=== PATIENT | female | born 1960 | race Caucasian/White ===

== ENCOUNTER 2024-12-20 08:21 | Day surgery (SDC) | payer MEDICARE, OTHER, SELFPAY ==
[2024-12-06 08:17] VITALS: BMI 34.0
[2024-12-20] VITALS (18 sets, daily range): BP systolic 123–153; BP diastolic 72–90; PULSE 77–131; RESP 10–18; TEMP 36.1–37.1; O2SAT 93–99; BMI 33.5
--- NOTE | 2024-12-20 | DI.RAD.S_ITS ---
PROCEDURE: XR HIP W PEL IF DONE RT 2V INDICATIONS: INTRA OP RT HIP TECHNIQUE: AP pelvis with lateral view(s) of the right hip(s). COMPARISON: None. FINDINGS: Bones: There are no osseous abnormalities. SI and hip joints: Right total hip prostheses, with exception of the femoral head , shows anatomic alignment. Mild left hip degeneration noted. Soft tissues: No soft tissue swelling, calcification or mass. IMPRESSION: Incomplete right hip prostheses is anatomically aligned Dictated by: Alli Reyna M.D. on 12/21/2024 at 7:43 Approved by: Alli Reyna M.D. on 12/21/2024 at 7:44
--- NOTE | 2024-12-20 06:00 | DI.RAD.S_ITS ---
PROCEDURE: XR HIP W PEL IF DONE RT 2V INDICATIONS: CASSIE TECHNIQUE: AP pelvis and lateral view of the hip acquired. COMPARISON: [facility], CR, XR HIP W PEL IF DONE RT 2V, 12/20/2024, 12:13. FINDINGS: Bones: Patient is status post total right hip arthroplasty, with hardware components in expected positions. The hip joint appears congruent. The visualized bony structures appear intact. Soft tissues: Overlying postoperative changes are noted. No suspicious soft tissue densities. IMPRESSION: Expected immediate postoperative appearance, status post total right hip arthroplasty. Dictated by: Vasu Hurtado M.D. on 12/20/2024 at 20:36 Approved by: Vasu Hurtado M.D. on 12/20/2024 at 20:37
[2024-12-20] MEDS: VANCOMYCIN 1,000 MG in SODIUM CHLORIDE 0.9% 250 ML 250 MG IV (09:54)
[2024-12-20] MEDS: ACETAMINOPHEN 325 MG TABLET 975 MG PO (09:54)
[2024-12-20] MEDS: CELECOXIB 200 MG CAPSULE PO (09:54)
[2024-12-20] MEDS: LACTATED RINGERS 1,000 ML 42 ML IV (09:55)
[2024-12-20] MEDS: SCOPOLAMINE 1 PATCH TOP (10:07)
--- NOTE | 2024-12-20 10:24 | P.OP_ITS ---
Operative Date/Time/Diagnoses Date of procedure: 12/20/24 Time of procedure: 11:00 Pre-op diagnosis: Right hip osteoarthritis Post-op diagnosis: same Procedure & Clinicians Procedure: Right total hip arthroplasty anterior approach Same procedure as scheduled: Yes Indications: The patient has had progressively worsening right hip pain with radiographic changes consistent with arthritis. Non-operative management has failed and the patient has requested total hip replacement. The risks, benefits and alternatives to surgery were discussed with the patient prior to proceeding. Risks discussed included, but were not limited to, failure to relieve pain, leg length discrepancy, dislocation, stiffness, infection, nerve damage, deep venous thrombosis, pulmonary embolism, stroke, coma, heart attack, permanent paralysis and , as well as the potential need for eventual revision of the prosthetic. Surgeon: Colleen Ellis Arcade Technician: Radha Rios Anesthesia Type: General and Spinal Operative Notes Findings: Severe right hip OA, adequate stability, adequate bone Closure Type: primary Specimen(s): none sent Prosthetic devices, grafts, tissues, transplants, or devices: Ellis and nephew R3 48, neutral poly liner, two 6.5 mm screw, polar stem size 2 standard offset, 32 x -3 Oxinium femoral head Estimated Blood Loss (mL): 250 Blood products transfused: none Procedure in detail: The patient was brought to the operating room. Patient was carefully positioned in the supine position. Time-out was performed and antibiotics were given. Anesthesia was induced. She was positioned in the on the table in order to allow hyperextension of the hip. The right lower extremity was prepped and draped in a standard sterile fashion. An anterior right hip incision was made 1 fingerbreadth lateral to the anterior superior iliac spine and extended distally towards the greater trochanter. Dissection was carried out through skin and subcutaneous tissues. Superficial hemostasis was achieved. The fascia over the tensor fascia luana was defined and incised with a knife. Two Allis clamps were used to grasp the fascia. Tensor fascia luana was retracted laterally. A gelpi retractor was placed. Dissection was carried out down along the neck. The circumflex vessels were carefully identified and cauterized with the Aqua Mantis. A PA was used during the procedure and was essential for intraoperative retraction and safe implantation of the components. There was good visualization of the femoral neck. A Cobra was placed superior to the neck and the gluteus fibers were carefully stripped from that superior aspect of the capsule. A 2nd retractor was placed along the inferior aspect of the neck. The rectus insertion along the capsule was partially released. A 3rd retractor that was then gently placed over the rim of the acetabulum under the rectus. Capsule was carefully incised and released from the intertrochanteric line circumferentially superior to the mid sagittal line and inferiorly to the mid sagittal line until the lesser trochanter was palpable. A tag stitch was placed both in the superior and inferior limb of the capsular insertion. Along the acetabulum capsule was also released up to the mid sagittal 12:00 position. A portion of the labrum was resected. A saw was used to perform an osteotomy at the level of the intertrochanteric line and the junction of the superior femoral neck leaving approximately 1 finger breath of residual inferior neck above the lesser trochanter. A 2nd cut was made along the femoral neck at the base of the head and a napkin ring of neck was removed. Corkscrew was placed in the femoral head and the head was removed without difficulty. Retractors were then repositioned around the acetabulum. Residual labrum was resected and additional osteophytes were removed. A reamer that was 4 mm below the templated size was placed by hand in the acetabulum and it was reamed to centralize the acetabulum. It was then reamed up to 2 under the templated size and fluoroscopy was brought in to confirm the position of the reaming and depth of reaming. I reamed 1 under the anticipated size. A trial cup was placed and noted that it was appropriately sized and fluoroscopy confirmed position and depth. The component was open and inserted without difficulty fluoroscopic imaging was used to confirm that the cup had been adequately seated and was well positioned. It was further stabilized with two screws. Neutral poly liner was placed. The cup was tested and noted to be stable. Attention was then directed to the femur. The femur was gently hyperextended additional capsular release was performed as needed in order to allow adequate visualization of the proximal femur with elevation of the femur. Patient was placed in a hyperextended slightly adducted position with maximum external rotation. Box osteotome was used to check for any residual neck as well as sclerotic bone along the trochanter. [place] pepper was placed in the femur. Additional broaching was performed. Canal finder was used to determine the alignment of the canal and position. Size 1 broach was placed. The canal was then appropriately broached up to the templated size as long as there was adequate stability of the broach and serial advancement of the broach without excessive impingement. Specific attention was directed at avoiding varus attempting to direct the distal aspect of the broach more anteriorly and avoiding excessive anteversion. Trial reduction showed acceptable range of motion, good stability, no posterior impingement, jehovah's witness of leg length and appropriate lateral shuck. I also hyperflexed the hip and checked that there was no impingement anteriorly and there was good stability with flexion, adduction and internal rotation. Marcaine and Exparel were injected. The stem was placed without difficulty. Repeat trial reduction and x-ray showed acceptable overall position, length, and no evidence of the femoral fracture. Final head was placed. Wound was meticulously irrigated with normal saline. The hip was reduced and additional Exparel and Marcaine were injected. The capsule was closed with interrupted nonabsorbable sutures. The fascia of the tensor was closed with interrupted and running Vicryl. No drain was placed. Any tensor fascia luana muscle that appeared to be contused or injured which was a minimal amount was carefully resected. Capsule around the tensor was injected with Exparel and Marcaine. The skin was closed with barbed stitches for the subcutaneous tissue and skin. We also used surgical glue. The wound was dressed sterilely. Brief Betadine soak was also used and was meticulously irrigated with normal saline. Patient was transferred to recovery room in satisfactory condition. Complications: none Post-operative Condition: stable Disposition: Acute Care Plan for aftercare: The patient will be maintained on a standard total hip replacement protocol with weight bearing as tolerated and anterior hip precautions. The patient will receive Aspirin and sequential compression devices for DVT prophylaxis. The patient will be discharged home when safe for the home environment.
[2024-12-20] MEDS: CEFAZOLIN 2 GM/100 ML PREMIX 100 ML IV ×2 (11:30→18:48)
[2024-12-20] MEDS: TRANEXAMIC ACID 1,000 MG VIAL 1000 MG INJ ×2 (11:37→13:07)
--- NOTE | 2024-12-20 11:42 | SUR.OPER ---
Supine on padded Pinson table with bilateral legs secured in padded positioning boots and suspended in positioning spars, operative leg in traction per surgeon. Head on one pillow. Arm on non-operative side secured on padded armboard <90 degrees abduction. Arm on operative side padded and resting across chest then secured with tape over sheet. Padded perineal post in place per surgeon.
[2024-12-20] MEDS: BUPIVACAINE LIPOSOME 266 MG/20 ML VIAL INJ (11:50)
[2024-12-20] MEDS: BUPIVACAINE 0.25% W/ EPI 30 ML VIAL 60 ML INJ (11:54)
--- NOTE | 2024-12-20 13:59 | PM.PREOP ---
Pre-operative Note Interval Note History & Physical reviewed/Exam performed by Physician: Yes Changes to H&P: No
[2024-12-20] MEDS: hydrOXYzine 50 MG/ML INJ 25 MG IM (14:15)
[2024-12-20] MEDS: HYDROMORPHONE 1 MG INJ IV (14:16)
[2024-12-20] MEDS: LACTATED RINGERS 1,000 ML 100 ML IV (15:30)
[2024-12-20] MEDS: IBUPROFEN 400 MG TABLET PO ×2 (16:20→21:50)
[2024-12-20] MEDS: ACETAMINOPHEN 325 MG TABLET 650 MG PO (16:21)
[2024-12-20] MEDS: TRAMADOL 50 MG TABLET PO ×2 (18:09→21:51)
[2024-12-20] MEDS: LORazepam 0.5 MG TABLET PO (19:50)
[2024-12-20] MEDS: ASPIRIN EC 81 MG TABLET PO (21:50)
[2024-12-20] MEDS: DOCUSATE 100 MG CAPSULE PO (21:52)
[2024-12-21] MEDS: LACTATED RINGERS 1,000 ML 100 ML IV (01:42)
[2024-12-21] MEDS: CEFAZOLIN 2 GM/100 ML PREMIX 100 ML IV (03:15)
[2024-12-21] MEDS: ONDANSETRON 4 MG/2 ML INJ IV (03:19)
[2024-12-21 04:00] VITALS: BP 139/79; PULSE 88; RESP 18; TEMP 36.3; O2SAT 98
[2024-12-21] MEDS: ACETAMINOPHEN 325 MG TABLET 650 MG PO ×2 (05:07→11:12)
[2024-12-21] MEDS: LEVOTHYROXINE 100 MCG TABLET PO (05:08)
[2024-12-21] MEDS: IBUPROFEN 400 MG TABLET PO ×2 (05:08→11:12)
[2024-12-21 05:19] LABS: Hemoglobin 11.7 g/dL (12.0-16.0)
[2024-12-21] MEDS: PANTOPRAZOLE DR 20 MG TABLET PO (07:00)
--- NOTE | 2024-12-21 07:52 | P.DS_ITS ---
History of Present Illness History of Present Illness Date Patient Seen: 12/21/24 Time Patient Seen: 07:52 Chief complaint: OPB Narrative: The patient has had progressively worsening right hip pain with radiographic changes consistent with arthritis. Non-operative management has failed and the patient has requested total hip replacement. The risks, benefits and alternatives to surgery were discussed with the patient prior to proceeding. Risks discussed included, but were not limited to, failure to relieve pain, leg length discrepancy, dislocation, stiffness, infection, nerve damage, deep venous thrombosis, pulmonary embolism, stroke, coma, heart attack, permanent paralysis and , as well as the potential need for eventual revision of the prosthetic. Discharge Providers Provider Discharge Date: 12/21/24 Primary care physician: TONY Bautista Consults: 12/20/24 06:00 Consult to Anesthesiology Routine Comment: Consulting Provider: Anesthesiologist Reason for consultation: Regional block for post operative pain control Has provider been notified: No 12/20/24 15:15 Consult to Discharge Planning Routine Comment: Consult to Occupational Therapy Evaluate & Treat Comment: Physician Instructions: Evaluate and treat Consult to Physical Therapy Evaluate & Treat Comment: Physician Instructions: post op CASSIE protocol Discharge provider: Demetri Bauer PA-C Summary Hospital Course Discharge Diagnosis: Right hip osteoarthritis Hospital Course: Procedure: Right total hip arthroplasty anterior approach Same procedure as scheduled: Yes Surgeon: Colleen Ellis Athletic Equipment Manager: Radha Rios Anesthesia Type: General and Spinal Operative Notes Findings: Severe right hip OA, adequate stability, adequate bone Closure Type: primary Specimen(s): none sent Prosthetic devices, grafts, tissues, transplants, or devices: Ellis and nephew R3 48, neutral poly liner, two 6.5 mm screw, polar stem size 2 standard offset, 32 x -3 Oxinium femoral head Estimated Blood Loss (mL): 250 Blood products transfused: none Status at Discharge Cognitive/behavioral status at discharge: oriented Functional status at discharge: uses cane/walker Time Spent with Patient Time spent: Less than 30 minutes Exam Vital Signs (past 8 hours): - 12/21/24 04:00 Temperature 97.3 F L Pulse Rate 88 Respiratory Rate 18 Blood Pressure 139/79 Pulse Oximetry 98 Oxygen Flow Rate 0 Oxygen Delivery Method Room Air Oxygen Flow Rate 0 Narrative Exam Narrative: Patient's pain is controlled with oral medication. Pain is localized to surgical site. Patient declines any new numbness or tingling at the surgical extremity. Patient denies any shortness of breath, dizziness, light-headedness, nausea, vomiting, fever or chills. 5/5 strength in hip flexors, quadriceps, hamstrings, DF, PF, EHL bilaterally. Sensation to light touch intact throughout BLE. Calves soft, compressible, nontender. Dressing placed intraoperatively CDI. Resp Effort & Inspection: normal respiratory effort and able to speak in complete sentences Objective Labs 12/21/24 04:30 Labs: Laboratory Results - last 24 hr 12/21/24 04:30 Hgb 11.7 L Hct 35.0 L [facility] Medical History (Updated 12/06/24 @ 09:26 by Eliza Parson RN) RSV (acute bronchiolitis due to respiratory syncytial virus) (2023) ADHD Panic attack Osteoarthritis Hypothyroid GERD (gastroesophageal reflux disease) IBS (irritable bowel syndrome) Fibromyalgia Surgical History (Updated 12/06/24 @ 09:16 by Eliza Parson RN) History of History of ankle surgery (~1992) H/O right wrist surgery History of total right knee replacement (2006) Social History household members: spouse Smoking Status: Never smoker alcohol intake: never Discharge Assessment & Plan Assessment and Plan Assessment: Status post Right total hip arthroplasty anterior approach Plan of Treatment: Discharge to home. Anterior Hip Pre-cautions. Ambulate and weight bear as tolerated with assistive devices. Aspirin 81 mg twice a day for 6 weeks for DVT prevention. Baseline pain relief with acetaminophen 500mg every 4 hours as needed and ibuprofen 400 mg every 4 hours as needed. Patient has been prescribed tramadol 50 mg every 4 hours as needed for breakthrough pain. Prescribed lorazepam 0.5 mg q.6 hours as needed for breakthrough spasm. Initiate physical therapy in the next 5-10 days. Keep dressing clean and dry. Keep dressing on until first office visit. If dressing becomes dirty or disrupted, replace with appropriate sized dressing. Follow up in clinic in 2 weeks for wound check. Contact clinic if there are any questions or concerns. Discharge Plan Discharge Plan Patient Disposition: Home Provider Discharge Comment: DC pending PT approval Discharge orders & Medications Discharge Orders: Discharge (Order); Ordered 12/21/24 Ordered By: Demetri Bauer Prescriptions: New aspirin 81 mg Tablet,Delayed Release (Dr/Ec) 81 mg PO BID Qty: 90 0RF lorazepam 0.5 mg Tablet 0.5 mg PO Q6HR PRN (Reason: Pain, Moderate (4-6)) Qty: 30 0RF Continued liothyronine 5 mcg Tablet 20 mcg PO DAILY levothyroxine [Synthroid] 100 mcg Tablet 100 mcg PO DAILY omeprazole 20 mg Tablet,Delayed Release (Dr/Ec) 20 mg PO DAILY Follow up/Referrals: Lyssa Nguyen FNP-C [Primary Care Provider] - Colleen Ellis MD [Physician] - 01/04/25 10:30 am (Follow up at [facility] office in [place].) Diet/Activity/Treatments Diet: Diet as Tolerated Activity: Weightbearing as tolerated. Cold/Heat Therapy: Ice to hip as needed for pain. Skin/Wound/Dressing Care Report to your healthcare provider any signs of infection, such as:: chills, fever, night sweats, unusual drainage and unusual redness Dressing: May shower. Leave dressing in place until follow up in office. No bathing or otherwise soaking incision. Call the office if the dressing becomes saturated inside. Visit Report/Discharge Packet Instructions: DI for Hip Replacement Stand Alone Forms: Patient Portal/API, Surgery Discharge Discharge Data Primary Care Provider: Lyssa Nguyen Attending Provider: Colleen Ellis
[2024-12-21] MEDS: DOCUSATE 100 MG CAPSULE PO (08:39)
[2024-12-21] MEDS: TRAMADOL 50 MG TABLET PO (08:39)
[2024-12-21] MEDS: ASPIRIN EC 81 MG TABLET PO (08:39)
--- NOTE | 2024-12-21 09:21 | PT.IIE ---
Current Diagnoses Unilateral primary osteoarthritis, right hip (12/20/24) Surgery Performed Operation Date: 12/20/24 10:45 Actual Procedures p Total Hip Arthroplasty/Anterior Approach(Right) - Colleen Ellis MD Surgical History (Last Updated 12/06/24 @ 09:16 by Eliza Parson, RN) H/O right wrist surgery History of ankle surgery (~1992) History of History of total right knee replacement (2006) Medical History (Last Updated 12/06/24 @ 09:26 by Eliza Parson RN) ADHD Fibromyalgia GERD (gastroesophageal reflux disease) Hypothyroid IBS (irritable bowel syndrome) Osteoarthritis Panic attack RSV (acute bronchiolitis due to respiratory syncytial virus) (2023) Physical Therapy Inpatient Evaluation/Re-Eval M1 PT/OT-IP Prior Functional Status Start: 12/21/24 11:21 Freq: NEEDED Status: Discharge Protocol: Document 12/21/24 10:15 [facility] (Rec: 12/21/24 11:32 [facility] Desktop) Medical Review Prior Functional Status Communication I Mobility and Gait Pt states was able to walk a mile but have pain afterwards. Activities of Daily Living and IADL's Pt states was completely independent with all ADL and IADL needs. Social History Household Members spouse Living Arrangements House Number of Floors (Floors) Two Floors Number of Stairs To Enter/Railing? 4 steps with bilateral rails to the main level pt will be staying at. Home Environment Standard Height Toilet,Walk in Shower Home Equipment Front Wheel Walker,Hand Held Shower,Beer Coil Cleaner,Grab Bars In Shower Additional Social History Comment Pt has a toilet safety frame. Pt also has a standard walker that she will use the shower per pt. M1 PT/OT-IP Prior Functional Status Start: 12/21/24 13:59 Freq: NEEDED Status: Active Protocol: Document 12/21/24 09:21 [facility] (Rec: 12/21/24 14:10 [facility] [id number]) Medical Review Prior Functional Status Medical History Reviewed Yes Communication able to make needs known Mobility and Gait pt stated that she was independent with all mobilities and ambulationw ithout AD Activities of Daily Living and IADL's per OT note: Pt states was completely independent with all ADL and IADL needs. Social History Household Members spouse Living Arrangements House Number of Floors (Floors) Two Floors Number of Stairs To Enter/Railing? 4 steps with B rails to enter the house; pt will stay on main level of the house Home Environment Standard Height Toilet,Walk in Shower Home Equipment Front Wheel Walker,Hand Held Shower,Beer Coil Cleaner,Grab Bars In Shower Additional Social History Comment Pt has a toilet safety frame. Pt also has a standard walker that she will use the shower per pt. M2 PT-IP Current Condition Start: 12/21/24 13:59 Freq: NEEDED Status: Active Protocol: Document 12/21/24 09:21 [facility] (Rec: 12/21/24 14:10 AB [id number]) Physical Therapy Current Condition Current Condition Evaluation Date 12/21/24 Treatment Diagnosis s/p R CASSIE anterior; difficulty in walking Onset Date 12/20/24 M3 PT-IP Subjective Start: 12/21/24 13:59 Freq: NEEDED Status: Active Protocol: Document 12/21/24 09:21 [facility] (Rec: 12/21/24 14:10 AB [id number]) Subjective Physical Therapy Visit Type Type Initial Evaluation Visit Start Time 09:21 Visit Stop Time 09:50 Number of CODING TEAM LEAD Visits 0 Physical Therapy Visit Comments Patient Comments agreeable to do PT Therapy Pain Assessment Pain When Pain Assessed At Rest Pain Present Pain Present Pain Reported Location Right Hip Intensity 4 Scale Used Numeric (0 - 10) Pain Management Techniques Distraction,Modification of Treatment,Re-positioning, Timing of Activity with Medications M4 PT-IP Mobility and Gait Start: 12/21/24 13:59 Freq: NEEDED Status: Active Protocol: Document 12/21/24 09:21 [facility] (Rec: 12/21/24 14:10 AB [id number]) PT-Bed Mobility Assessment Supine to Sit Supine to Sit Standby Assistance Sit to Supine Sit to Supine Standby Assistance PT-Transfer Assessment Sit to and From Stand Sit to and from Stand Standby Assistance,1 Person Assistance,Use of Upper Extremities Equipment Transfer Assistive Device Gait Belt,Front Wheeled Walker Orthotic/Prosthetic Devices or Brace: No Transfers Transfer Destination Chair,Toilet Transfer Technique ambulated Transfer Ability Level of Assist Standby Assistance,1 Person Assistance,Use of Upper Extremities Comments Mobility Comments pt in bed and agreeable to do PT. pt requested to use the toilet. completed supine to sit sBA. no c/o dizziness/ lightheadedness. sit to stand SBA and ambulated to the toilet using FWW SBA. pt can be impulsive. cued for safety. completed toileting SBA. sit to stand from the toilet SBA and ambulated to the sink using FWW SBA. able to maintain standing using FWW for support while completing handwashing. pt walk to the chair using FWW SBA. obtained PLOF and home set up. educated pt regarding anterior hip precautions. pt completed sit to stand from chair SBA and ambulated ~ 25 ft using FWW sBA. assisted pt to the stairs. educated pt on how to do stairs. pt completed up/down steps using B rails CGA. pt stated that she can let spouse know on how to assist her and no caregiver training needed. assisted pt back to her room. pt does not want to stay seated on the chair and wants to go back to bed. sit to stand from the w/c SBA and ambulated to the bed using fWW SBA. completed sit to supine SBA. pt used safety belt to lift RLE up to the bed. positioned pt on the bed. call light and table placed within reach. Gait Assessment Gait Gait Assistance Required: Standby Assistance Distance (Feet) 25 Able to Maintain Weight Bearing Status Yes During Gait Assistive Devices Assistive Device Gait Belt,Front Wheeled Walker Orthotic/Prosthetic Devices or Brace: No Gait Deviations General Gait Pattern Antalgic,Decreased Stride Length,Decreased Feet Clearance Factors Limiting Gait Function Factors Limiting Gait Function Decreased Activity Tolerance, Decreased Strength,Limited Range of Motion,Pain,Poor Balance,Poor Safety Awareness Stair Climbing Assessment Evaluation Level of Assist On Stairs Contact Guard Assistance Devices Stair Climbing Assistive Devices Left Railing,Right Railing Technique/Endurance Stair Climbing Direction Ascend and Descend Stair Climbing Technique Step to Step Number of Steps Climbed 3 Query Text: Stair Climbing Set # Repetitions (reps) 1 PT-Balance Assessment Sitting Balance and Reactions Static Sitting Balance Ability Normal Dynamic Sitting Balance Ability Good Standing Balance and Reactions Static Standing Balance Ability Good Dynamic Standing Balance Ability Fair Device Used FWW M5 PT-IP Objective Assessments Start: 12/21/24 13:59 Freq: NEEDED Status: Active Protocol: Document 12/21/24 09:21 [facility] (Rec: 12/21/24 14:10 AB [id number]) Orientation Orientation/Cognition Level of Alertness Alert Orientation Name,Age,Birthday,Month,Date, Year,Day of Week,Place, Situation Language Function Ability No Deficits Noted Safety Awareness Understands Safety Issues Memory Description No Deficits Noted Gross Range of Motion Lower Extremity ROM Assessment Within Functional Limits Strength Lower Extremity Strength Hip 3+/5 Knee 4-/5 Coordination Assessment Gross Coordination Gross Coordination WNL Sensation Assessment Sensation Gross Sensation WNL Muscle Tone Muscle Tone WNL Yes M6 PT-IP Treatment Start: 12/21/24 13:59 Freq: NEEDED Status: Active Protocol: Document 12/21/24 09:21 [facility] (Rec: 12/21/24 14:10 AB [id number]) Physical Therapy Treatment Education Education Provided Precautions,Weight Bearing Status,Post-Op Packet,Safety M7 PT-IP Assessment and Plan Start: 12/21/24 13:59 Freq: NEEDED Status: Active Protocol: Document 12/21/24 09:21 [facility] (Rec: 12/21/24 14:10 AB [id number]) PT Summary Assessment and Plan Potential Rehabilitation Potential Fair Status of Condition at Evaluation Stable Summary Impairments Pain,ROM,Strength,Balance, Coordination,Sensation,Tone, Cognition,Bed Mobility, Transfers,Gait,Activity Tolerance Assessment Summary pt is a 64 y/o F s/p R CASSIE anterior approach POD 1. pt has R hip anterior precautions and is WBAT. pt requiring SBA with mobility using FWW and CGA for stair climbing. pt plans to go home and spouse to assist. pt has out pt PT set up. Goals Bed Mobility Goal Independent Transfer Goal Independent,Front Wheeled Walker Gait Goal Independent,Front Wheel Walker Gait Distance 150 Other Goals up/down 4 steps B rails mod I Days to Meet Goals 5 Frequency of Treatment Frequency Of Treatment Twice a Day Treatment Plan Physical Therapy Treatment Plan Bed Mobility Training,Transfer Training,Gait Training, Therapeutic Exercise,Balance Retraining,Post Op Education, Discharge Planning,Hot or Cold Pack,Neuromuscular Re-ed, Coordination Retraining,Manual Therapy Precautions Anterior Hip Precautions No Hip Extension,No Hip External Rotation Weight Bearing Status Weight Bearing Status Weight Bear as Tolerated Allowed Weight Bearing Amount (enter % RLE WBAT or #) (%) Recommendations To Nursing Amount of Assist Needed 1 Person Assist Discharge Recommendations PT Discharge Recommendations Home with Assistance, Outpatient PT Transportation Needs at Discharge Private Vehicle - PT assist 1
[2024-12-21 09:35] VITALS: BP 126/71; PULSE 75; RESP 15; TEMP 36.5; O2SAT 98
[2024-12-21] MEDS: LIOTHYRONINE 5 MCG TABLET 20 MCG PO (10:02)
[2024-12-21] MEDS: LORazepam 0.5 MG TABLET PO (11:12)
--- NOTE | 2024-12-21 11:32 | OT.IP.EVAL ---
Current Diagnoses Unilateral primary osteoarthritis, right hip (12/20/24) Surgery Performed Operation Date: 12/20/24 10:45 Actual Procedures p Total Hip Arthroplasty/Anterior Approach(Right) - Colleen Ellis MD Past Medical History (Last Updated 12/06/24 @ 09:26 by Eliza Parson, RN) ADHD Fibromyalgia GERD (gastroesophageal reflux disease) Hypothyroid IBS (irritable bowel syndrome) Osteoarthritis Panic attack RSV (acute bronchiolitis due to respiratory syncytial virus) (2023) Surgical History (Last Updated 12/06/24 @ 09:16 by Eliza Parson RN) H/O right wrist surgery History of ankle surgery (~1992) History of History of total right knee replacement (2006) Occupational Therapy Inpatient Evaluation/Re-Eval M1 PT/OT-IP Prior Functional Status Start: 12/21/24 11:21 Freq: NEEDED Status: Active Protocol: Document 12/21/24 10:15 [facility] (Rec: 12/21/24 11:32 [facility] Desktop) Medical Review Prior Functional Status Communication I Mobility and Gait Pt states was able to walk a mile but have pain afterwards. Activities of Daily Living and IADL's Pt states was completely independent with all ADL and IADL needs. Social History Household Members spouse Living Arrangements House Number of Floors (Floors) Two Floors Number of Stairs To Enter/Railing? 4 steps with bilateral rails to the main level-pt will be staying at. Home Environment Standard Height Toilet,Walk in Shower Home Equipment Front Wheel Walker,Hand Held Shower,Cooler Servicer,Grab Bars In Shower Additional Social History Comment Pt has a toilet safety frame. Pt also has a standard walker that she will use the shower per pt. M2 OT-IP Current Condition Start: 12/21/24 11:21 Freq: Status: Active Protocol: Document 12/21/24 10:15 [facility] (Rec: 12/21/24 11:32 [facility] Desktop) Occupational Therapy Current Condition Current Condition Evaluation Date 12/21/24 Treatment Diagnosis S/P R CASSIE Anterior Diagnosis Onset Date 12/20/24 Post Operative Precautions Anterior Hip Precautions No Hip Extension M3 OT- IP Subjective and Pain Start: 12/21/24 11:21 Freq: Status: Active Protocol: Document 12/21/24 10:15 [facility] (Rec: 12/21/24 11:32 [facility] Desktop) OT- Subjective Occupational Therapy Visit Type Type Initial Evaluation Visit Start Time 08:30 Visit Stop Time 10:30 Notes Pt seen from [id number] and 1016- 1030. Occupational Therapy Visit Comments Patient Comments Pt agreed to get dressed. Pt's present. Patient/Caregiver Goals TO go home. OT Pain Assessment Pain When Pain Assessed At Rest Pain Present Pain Present Denied Pain M4 OT- IP ADL's Start: 12/21/24 11:21 Freq: Status: Active Protocol: Document 12/21/24 10:15 [facility] (Rec: 12/21/24 11:32 [facility] Desktop) OT [id number] General Evaluation Self-Feeding Ability Independent OT ADL-Grooming General Evaluation Grooming Ability Independent OT ADL-Oral Care Comments Oral Care Comments Pt states did before. OT ADL-Dressing General Eval Upper Body Dressing Ability Independent Lower Body Dressing Ability Standby Assistance Comments OT Dressing Comments Educated to dress the RLE first and take out last. OT ADL-Toileting Comments OT Toileting Comments Pt states there is 10 feet or so to the toilet. OT ADL-Bathing Comments OT Bathing Comments Pt will benefit from a shower chair. M5 OT- IP IADL's Start: 12/21/24 11:21 Freq: Status: Active Protocol: Document 12/21/24 10:15 [facility] (Rec: 12/21/24 11:32 [facility] Desktop) OT-Instrumental Activities of Daily Living Home Safety Awareness Awareness of Need for Assistance at Home Good Awareness Ability to Problem Solve Emergency Able to Problem Solve Situations Medication Management Medication Management No Deficits Identified Money Management Money Management No Deficits Identified Meal Preparation Meal Preparation Caregiver Provides Assist Experiential Therapist Experiential Therapist Caregiver Provides Assist M6 OT- IP Functional Cognition Start: 12/21/24 11:21 Freq: Status: Active Protocol: Document 12/21/24 10:15 [facility] (Rec: 12/21/24 11:32 [facility] Desktop) Cognitive Factors Limiting Selfcare Function Cognitive Ability Level of Alertness Alert Patient Orientation Name,Age,Birthday,Month,Date, Year,Day of Week,Place, Situation Attention Span Ability Capable of Focused Attention, Capable of Sustained Attention Ability to Follow Commands Able to Follow One Step Commands Safety Awareness Underestimates Need for Assistance Cognitive Comments Cognitive Assessment Comments Pt is a bit impulsive and needing cues to slow down. OT- Vision and Hearing OT- Hearing Assessment OT- Hearing Assessment WFL OT- Vision Assessment Visual Acuity Glasses All The Time Visual Attentiveness WFL Occular Pursuits WFL M7 OT- IP Mobility and Balance Start: 12/21/24 11:21 Freq: Status: Active Protocol: Document 12/21/24 10:15 [facility] (Rec: 12/21/24 11:32 [facility] Desktop) OT-Transfer Assessment Sit to and From Stand Sit to and from Stand Standby Assistance Transfers Transfer Ability Standby Assistance Technique Transfer Destination Chair Transfer Technique Stand Step Pivot Devices Transfer Assistive Devices Gait Belt,Front Wheeled Walker Comments Mobility Comments SBA to stand with the FWW for dressing needs. Pt trying to get up without the FWW and needing cues to slow down. OT- Balance Assessment Sitting Balance and Reactions Static Sitting Balance Ability Normal Dynamic Sitting Balance Ability Normal Standing Balance and Reactions Static Standing Balance Ability Normal Dynamic Standing Balance Ability Good M8 OT- IP Objective Assessments Start: 12/21/24 11:21 Freq: Status: Active Protocol: Document 12/21/24 10:15 [facility] (Rec: 12/21/24 11:32 [facility] Desktop) OT Gross Range of Motion Upper Extremity Range of Motion ROM Impairments WFL for needs. OT Strength Upper Extremity Strength Assessment Within Functional Limits M9 OT- IP Assessment and Plan Start: 12/21/24 11:21 Freq: Status: Active Protocol: Document 12/21/24 10:15 [facility] (Rec: 12/21/24 11:32 [facility] Desktop) OT Summary Assessment and Plan Potential Rehabilitation Potential Excellent Analytic Complexity at Evaluation Low Summary OT Impairments Pain,Functional Mobility, Dressing,Bathing,Shower Transfers Progress Towards Goals Progressing Toward Goals Assessment Summary Pt low complexity and main barriers are pain, a bit impulsive and needing cues to slow down. Pt to go home with assist and have outpt PT. Pt will benefit from a shower chair, but pt insists to use a standard walker in the shower instead. Goals Dressing Goal Independent Toileting Goal Independent Bathing Goal Standby Assistance Toilet Transfer Goal Independent Shower Transfer Goal Independent Days to Meet Goals 3 Frequency of Treatment Frequency Of Treatment Once a Day Treatment Plan OT Treatment Plan ADL Training,Patient/Family Education,Discharge Planning Discharge Recommendations OT Discharge Recommendations Home with Assistance, Outpatient PT Home Equipment Needs shower chair Transportation Needs at Discharge Private Vehicle
--- NOTE | 2024-12-21 11:59 | PC.NURSE ---
Patient cleared for discharge by P.T. and O.T. Patient eager for discharge to home with her today. IV removed intact. Aquacel dressing to incision remains CDI without drainage. Discharge instructions reviewed with patient, she states understanding and has no further questions or concerns. Patient escorted out via wheelchair with all her belongings with her to discharge to home.
== END 2024-12-21 11:30 | disposition home or self-care (01) ==
LOC: OR 08:24 → AC 08:26
PROVIDERS: PCP Registered Nurse; Referring Provider Orthopaedic Surgery; Visit Provider Orthopaedic Surgery
PROC: (CPT 27130; principal; 2024-12-20 10:45)
DX: M16.11 Unilateral primary osteoarthritis, right hip (principal); E66.9 Obesity, unspecified; Z68.34 Body mass index [BMI] 34.0-34.9, adult; M25.751 Osteophyte, right hip
CPT/HCPCS: 27130; 36415; 73502; 76000; 85014; 85018; 97161; 97165; 97530; 97535; C1776; J0666; J0690; J1100; J1171; J2250; J2405; J2704; J3010; J3410